=== PATIENT | male | born 1955 | race Caucasian/White ===

== ENCOUNTER → 2020-03-24 | Outpatient (CLI) | payer MEDICARE ==
--- NOTE | 2020-03-24 14:46 | US ---
EXAMINATION TYPE: US venous doppler duplex LE RT DATE OF EXAM: 03/24/2020 2:34 PM COMPARISON: NONE CLINICAL HISTORY: RLE M79.661 Pain in right leg; R22.41 swelling. work injury on lower right owusu abo ve ankle, assess for clot, no h/o dvt SIDE PERFORMED: Right TECHNIQUE: The lower extremity deep venous system is examined utilizing real time linear array sonog basil with graded compression, doppler sonography and color-flow sonography. VESSELS IMAGED: Common Femoral Vein Deep Femoral Vein Greater Saphenous Vein * Femoral Vein Popliteal Vein Small Saphenous Vein * Proximal Calf Veins (* superficial vessels) Right Leg: Negative for DVT superficial soft tissue near injury produced no hematoma or other abno rmality, mild subcutaneous edema at this level is present Grayscale, color doppler, spectral doppler imaging performed of the deep veins of the right lower ext remity. There is normal flow, compressibility, vascular waveforms. IMPRESSION: No ultrasound evidence for acute DVT in the right lower extremity.
== END | disposition home or self-care (01) ==
LOC: RADUSWWP 14:10
PROVIDERS: ATTEND Family Medicine
DX: M79.661 Pain in right lower leg (principal); R22.41 Localized swelling, mass and lump, right lower limb

== ENCOUNTER → 2024-03-04 | Outpatient (CLI) | payer MEDICARE ==
[2024-03-04 13:31] LABS: INR 0.9 (<1.2); Partial Thromboplastin Time 23.3 sec (22.0-30.0); Prothrombin Time 10.2 sec (10.0-12.5)
[2024-03-04 19:45] LABS: ALT 27 U/L (10-49); AST 23 U/L (14-35); Albumin 4.5 g/dL (3.8-4.9); Albumin/Globulin Ratio 2.05 Ratio (1.60-3.17); Alkaline Phosphatase 88 U/L (41-126); BUN/Creat Ratio 17.58 Ratio (12.00-20.00); Blood Urea Nitrogen 21.1 mg/dL (9.0-27.0); Calcium 9.5 mg/dL (8.7-10.3); Carbon Dioxide 27.3 mmol/L (21.6-31.8); Chloride 101 mmol/L (96-109); Globulin 2.2 g/dL (1.6-3.3); Glucose 95 mg/dL (70-110); Potassium 3.9 mmol/L (3.5-5.5); Sodium 141 mmol/L (135-145); Total Bilirubin 0.4 mg/dL (0.3-1.2); Total Protein 6.7 g/dL (6.2-8.2)
[2024-03-04 20:03] LABS: HCT 42.7 % (39.6-50.0); HGB 13.6 g/dL (13.0-17.0); MCHC 31.9 g/dL (32.0-37.0); MCV 94.3 FL (80.0-97.0); Mean Platelet Volume 9.4 FL (9.5-12.2); NRBC Per 100 WBC 0 X 10*3/uL (0.00-0.01); Platelet Count 443 X 10*3/uL (140-440); RBC 4.53 X 10*6/uL (4.40-5.60); RDW 12.7 % (11.5-14.5); WBC 6.93 X 10*3/uL (4.50-10.00)
== END | disposition home or self-care (01) ==
LOC: LABPAT 11:42
PROVIDERS: ATTEND Orthopaedic Surgery
DX: Z01.818 Encounter for other preprocedural examination (principal); M19.012 Primary osteoarthritis, left shoulder; Z22.322 Carrier or suspected carrier of Methicillin resistant Staphylococcus aureus
CPT/HCPCS: 80053; 85027; 85610; 85730; 87070; 93005

== ENCOUNTER 2024-03-18 07:23 | Day surgery (SDC) | payer MEDICARE ==
[~2024-03-18 07:23] MED LIST: ACETAMINOPHEN TAB 500 MG TAB PO PRN; LIDOCAINE 1% (10MG/ML) FOR IV START INTRADERMA PRN; TRANEXAMIC 1,000 MG/100ML-NACL 1,000 MG in SALINE 1 100ML.BAG IVPB PRN
[2024-03-18] MEDS: IV FLUID CONTINUATION 1,000 ML IV ONE (08:11)
[2024-03-18] MEDS: LACTATED RINGERS 1,000 ML IV SCH (08:15)
[2024-03-18] MEDS: MELOXICAM 7.5 MG TAB PO PRN (08:16)
[2024-03-18] MEDS: ONDANSETRON 4 MG/2 ML VIAL IVP ONE (08:16)
[2024-03-18] MEDS: DEXAMETHASONE SOD PHOSPHATE 4 MG/ML 1 ML VIAL IV ONE (08:16)
[2024-03-18] MEDS: GABAPENTIN 300 MG CAP PO PRN (08:16)
[2024-03-18] MEDS: MIDAZOLAM 2 MG/2 ML VIAL IV ONE (08:22)
--- NOTE | 2024-03-18 08:37 | P.ANPRN ---
Procedure Note - Anesthesia - Nerve Block Performed Left Interscalene Single Time Out Performed: Yes (0821) Date of Procedure: 03/18/24 Procedure Start Time: : Procedure Stop Time: Location of Patient: PreOp Indication: Acute Post-Operative Pain, Requested by Surgeon Sedation Type: Sedate with meaningful contact maintained Preparation: Sterile Prep, Sterile Dressing Position: Sitting Catheter: None Needle Types: Pajunk Needle Gauge: Other (see comment) (22G) Ultrasound used to visualize needle placement: Yes Ultrasound used to observe medication spread: Yes Injectate: 0.5% Ropivacaine (see comment for volume) (21 mL of block solution containing 20 mL of 0.5% ropivacaine mixed with 4 mg of dexamethasone) Blood Aspirated: No Pain Paresthesia on Injection Noted: No Resistance on Injection: Normal Image Stored and Saved: Yes Events: Uneventful and Well Tolerated
[2024-03-18] MEDS ORDERED: HYDROmorphone 0.5 MG/0.5 ML SYRINGE IVP PRN (08:55)
[2024-03-18] MEDS ORDERED: SENNOSIDES-DOCUSATE SODIUM 1 EACH TAB PO PRN (08:55)
[2024-03-18] MEDS ORDERED: ONDANSETRON 4 MG/2 ML VIAL IVP PRN (08:55)
[2024-03-18] MEDS ORDERED: PROPOFOL 10 MG/ML 20 ML VIAL IV ONE (08:57)
[2024-03-18] MEDS ORDERED: fentaNYL (PF) 50 MCG/ML 2 ML AMP ONE (08:57)
[2024-03-18] MEDS ORDERED: ROCURONIUM 10 MG/ML (5 ML VIAL) IV ONE (08:57)
[2024-03-18] MEDS ORDERED: SUCCINYLCHOLINE CHLORIDE 200 MG/10 ML VIAL IV ONE (08:57)
[2024-03-18] MEDS ORDERED: DEXAMETHASONE SOD PHOSPHATE 4 MG/ML 1 ML VIAL ONE (08:57)
[2024-03-18] MEDS ORDERED: TRANEXAMIC 1,000 MG/100ML-NACL PREMIX BAG ONE (08:57)
[2024-03-18] MEDS ORDERED: ePHEDrine 50 MG/ML 1 ML VIAL ONE (08:57)
[2024-03-18] MEDS ORDERED: NEOSTIGMINE 1 MG/ML 10 ML VIAL ONE (08:57)
[2024-03-18] MEDS ORDERED: PHENYLEPHRINE-0.9% NACL SYG 1,000 MCG/10 ML SYRINGE ONE (08:57)
[2024-03-18] MEDS ORDERED: GLYCOPYRROLATE 0.2 MG/ML 2 ML VIAL ONE (08:57)
[2024-03-18] MEDS ORDERED: MIDAZOLAM 2 MG/2 ML VIAL ONE (08:57)
[2024-03-18] MEDS ORDERED: ROPIVACAINE 5 MG/ML 30 ML VIAL ONE (08:57)
[2024-03-18] MEDS ORDERED: LIDOCAINE 1% INJ 10MG/ML (20 ML MDV) ONE (08:57)
[2024-03-18] MEDS: LACTATED RINGERS 1,000 ML IV ONE ×2 (10:24)
--- NOTE | 2024-03-18 10:40 | P.OP ---
Date of Procedure: 03/18/24 Preoperative Diagnosis: Severe glenohumeral osteoarthritis of the left shoulder with chronic rotator cuff tear Postoperative Diagnosis: Severe glenohumeral osteoarthritis of the left shoulder with chronic rotator cuff tear Procedure(s) Performed: Reverse left total shoulder arthroplasty Implants: Biomet comprehensive shoulder system, mini humeral stem, 13 mm porous-coated. Biomet comprehensive reverse shoulder system, humeral bearing, 36 mm, standard Biomet comprehensive reverse shoulder system, mini humeral tray, 40 mm, +3, retentive Biomet comprehensive reverse shoulder, Glenosphere mini baseplate, 25 mm Biomet comprehensive reverse shoulder, central screw, 6.5 mm x 25 mm Biomet comprehensive reverse shoulder, fixed locking screw, 4.75 x 20 mm, 20 mm, 15 mm, 20 mm. Biomet comprehensive reverse shoulder glenosphere, 36 mm, standard All components were press-fit. Articulation is metal on polyethylene.Articulation is metal on polyethylene. Anesthesia: GETA Surgeon: Geovanni Wilkes Newborn Hearing Screener #1: Lorri Beltran Estimated Blood Loss (ml): 100 Pathology: none sent Condition: stable Disposition: PACU Indications for Procedure: This is a patient that presented to my office with severe pain in the shoulder. X-rays demonstrated severe osteoarthritis of the glenohumeral joint of the shoulder. After failure of conservative treatment, we discussed the surgical and nonsurgical treatment options at length. The patient wishes to proceed with a reverse total shoulder arthroplasty. Patient is aware of the complications of the procedure which include but are not limited to infection, hardware failure, persistent pain, dislocation, and nerve injury. Informed consent was obtained. Operative Findings: The operative findings are consistent with severe glenohumeral osteoarthritis of the left shoulder with chronic rotator cuff tear Description of Procedure: The patient was seen in the preoperative area, consent was reviewed, and operative site was marked with a skin marker. Patient was then brought to the operating room and given preoperative antibiotics intravenously. Patient was also given 1 g of Tranexamic acid intravenously. A general anesthetic was administered by the anesthesia department. A Ceja catheter was placed by the nursing staff. The patient was then placed in a beachchair position with the bony prominences well-padded and the head secured. The shoulder was then prepped and draped in the usual sterile fashion. A universal timeout was then performed, which confirmed the patient's name, surgical site, ALLERGIES, and consent. A standard deltopectoral approach was performed. The skin and subcutaneous tissue was sharply dissected down to the deltoid fascia. The cephalic vein was then identified and retracted medially. The deltopectoral interval was then utilized to expose the subscapularis tendon. A retractor was then placed under the coracobrachialis tendon retracted medially, and the deltoid. The axillary nerve is palpated and protected throughout the procedure. The subscapularis tendon was then released and retracted medially. The humeral head was then exposed easily. The rotator cuff tendon was found to be completely torn and retracted. After the humeral head was exposed, osteophytes were removed with a Ronguer. Next the humeral stem was prepared. A starter reamer was then placed through the humeral head along the axis of the humeral shaft just lateral to the articular surface and just medial to the rotator cuff attachment. Sequential reaming was performed to the appropriate size reamer was inserted to the #between the 3 and 4 on the reamer. Next the intramedullary resection guide was placed on the reamer shaft. It was placed to the appropriate resection depth and angle of 30 of retroversion. Resection guide block was then secured with Steinmann pins. The proximal humerus was then resected. The block was then removed and the humerus was then broached sequentially to the same size as the reamer. After the broaches fully seated, the broach handle was removed and a broach cover was placed protect the humerus while the glenoid was prepared. Next attention was directed to the glenoid. The appropriate retractors were placed around the glenoid and any remaining soft tissues was removed from around the glenoid. After the glenoid was adequately exposed, the threaded glenoid guide was placed onto the glenoid and a 3.2 mm Steinmann pin was inserted in the glenoid at the desired angle and position, ensuring the pin engaged medial cortical wall. Next, the cannulated baseplate reamer was placed over the top of the Steinmann pin. The glenoid was then reamed to the appropriate depth. The glenoid reamer was then removed, leaving the Steinmann pin. The glenoid Joey plate implant was placed on the end of the cannulated baseplate impactor. The baseplate was then impacted fully into the glenoid. Next the 6.5 mm central screw was then placed which afforded excellent fixation. The 4 peripheral locking screws were then drilled measured and placed. Next the appropriate glenosphere was opened and impacted into the glenoid baseplate. Attention was then redirected to the humerus. Next a trial humeral tray was placed in the shoulder was reduced. Shoulder was taken through a full range of motion and found to be stable. The shoulder was then gently dislocated, and the trial humerus and humeral tray were removed. The final humeral stem was impacted in the final humeral tray was impacted as well. Shoulder was then relocated. Again the shoulder was taken through a range of motion and found to have no instability. Shoulder was then irrigated with pulsatile lavage. The shoulder was then irrigated with Irrisept solution. A second dose of 1 g of Tranexamic acid was given. The subscapularis was then repaired with #1 Vicryl. The deltopectoral interval was then closed with #1 Vicryl as well. The subcutaneous tissues were closed with 3-0 Vicryl, 3-0 moncryl, then Exofin glue was placed on the skin. A sterile dressing was then applied, the patient was transported to the recovery room in an arm sling in stable condition. The medical practice assistant YINA Duran was required due the complexity of surgery and the need for a skilled surgical coder.
[2024-03-18] MEDS: HYDROmorphone 0.5 MG/0.5 ML SYRINGE IVP PRN ×3 (11:14→22:15)
--- NOTE | 2024-03-18 13:22 | XR ---
EXAMINATION TYPE: XR shoulder limited LT DATE OF EXAM: 03/18/2024 1:18 PM INDICATION: Patient age:Male; 68 years old; Reason for study: post op; pain COMPARISON: None TECHNIQUE: The left shoulder was examined in single frontal projection. FINDINGS: Postsurgical changes from left shoulder arthroplasty with humeral head component and glenoid componen t. Hardware appears intact with appropriate alignment. There is surrounding soft tissue gas and edema . Mild AC joint arthropathy. No acute fracture or dislocation. The visualized portions of the lungs a re clear. IMPRESSION: Postsurgical changes from left shoulder arthroplasty. Hardware appears intact with appropriate alignm ent. [facility], , 03/18/2024 1:20 PM
[2024-03-18] MEDS: droPERidol 5 MG/2 ML VIAL IVP ONE (15:47)
[2024-03-18 15:55] VITALS: RESP 18
[2024-03-18] MEDS: SODIUM CHLORIDE 0.9% 1,000 ML IV SCH (16:10)
--- NOTE | 2024-03-18 17:17 | P.CONS ---
History of Present Illness - Reason for Consult Consult date: 03/18/24 - History of Present Illness Patient is a 68-year-old male with a history of hypertension, dyslipidemia, anxiety/depression presenting for elective reverse left total shoulder arthroplasty. [facility] physicians consulted for medical management. Currently patient's temperature 97.5, pulse 86, respiratory rate 18, blood pressure 135/89, saturating at 96% on room air. Patient denies any chest pain, shortness of breath, abdominal pain, nausea, vomiting, urinary or bowel complaints. Pertinent positives and negatives as discussed in HPI, a complete review of systems was performed and all other systems are negative. Patient seen and examined at bedside. Vital signs reviewed General: nontoxic, no distress, appears at stated age Derm: warm, dry, dressing clean, dry, intact Head: atraumatic, normocephalic, symmetric Eyes: EOMI, no lid lag, anicteric sclera, pupils equal round reactive to light ENT: Nose and ears atraumatic Neck: No thyromegaly, supple Mouth: no lip lesion, mucus membranes moist Cardiovascular: S1S2 reg, no murmur, no edema Lungs: clear to auscultation bilateral, no rhonchi, no rales, no wheeze, no accessory muscle use Abdominal: soft, nontender to palpation, no guarding, no appreciable organomegaly Ext: no gross muscle atrophy, left shoulder in a sling Neuro: CN II-XII grossly intact Psych: Alert, oriented, appropriate affect Assessment/Plan: Active: Status post left shoulder arthroplasty -Pain control with oral [place] as needed, IV Dilaudid as needed, monitor for sedation -On bowel regimen per orthopedic surgery -SCDs for DVT prophylaxis -CBC and BMP ordered for tomorrow Hypertension -Continue losartan hydrochlorothiazide 100-25 -Continue nifedipine 30 mg daily Dyslipidemia -Continue atorvastatin 20 mg daily, ezetimibe 10 mg daily OCD -Continue bupropion 300 mg daily Thank you for allowing us to participate in the care of this pleasant patient. Do not hesitate to contact us with questions. Someone can be reached from the [facility] hospitalist group all hours of the day at [phone] or via Roost. Past Medical History Past Medical History: Hyperlipidemia, Hypertension Additional Past Medical History / Comment(s): gout , has scabbed area on knee History of Any Multi-Drug Resistant Organisms: None Reported Past Surgical History: Appendectomy Additional Past Surgical History / Comment(s): cyst from knee, colonoscopies Past Anesthesia/Blood Transfusion Reactions: No Reported Reaction Additional Psychological History / Comment(s): ocd Smoking Status: Former smoker Past Alcohol Use History: Daily Additional Past Alcohol Use History / Comment(s): quit 27 yrs ago, 1 drink per day Past Drug Use History: None Reported - Past Family History Father Family Medical History: No Reported History Medications and Allergies Home Medications Medication Instructions Recorded Confirmed Type Aspirin [Adult Low Dose Aspirin EC] 81 mg PO DAILY 03/13/24 03/13/24 History Atorvastatin Calcium 20 mg PO DAILY 03/13/24 03/13/24 History Colchicine 0.6 mg PO DAILY PRN 03/13/24 03/18/24 History Ezetimibe [Zetia] 10 mg PO DAILY 03/13/24 03/13/24 History Losartan/Hydrochlorothiazide 1 tab PO DAILY 03/13/24 03/13/24 History [Losartan-Hctz 100-25 mg Tab] NIFEdipine XL [Procardia Xl] 30 mg PO DAILY 03/13/24 03/13/24 History Sildenafil (Unk) 1 tab PO DIRECTED PRN 03/13/24 03/13/24 History buPROPion HCL [buPROPion HCL XL] 300 mg PO DAILY 03/13/24 03/13/24 History HYDROcodone/APAP 7.5-325MG [[place] 1 - 2 tab PO Q6H PRN #32 tab 03/18/24 Rx 7.5-325] Sennosides [Senokot] 2 tab PO DAILY PRN #60 tablet 03/18/24 Rx Allergies Allergy/AdvReac Type Severity Reaction Status Date / Time No Known Allergies Allergy Verified 03/18/24 07:45 Physical Exam Vitals: Vital Signs Temp Pulse Resp BP Pulse Ox 03/18/24 15:48 97.5 F L 86 18 135/89 96 03/18/24 15:00 79 16 125/79 98 03/18/24 14:30 79 16 128/66 97 03/18/24 13:30 83 16 121/76 97 03/18/24 13:00 75 16 121/62 96 03/18/24 12:30 79 16 124/76 96 03/18/24 12:00 80 16 136/84 94 L 03/18/24 11:15 79 16 121/82 93 L 03/18/24 11:00 81 14 140/95 97 03/18/24 10:45 97 F L 83 14 161/98 97 03/18/24 08:30 72 16 137/88 97 03/18/24 08:09 98.4 F 69 16 139/93 99 Intake and Output 03/18/24 03/18/24 03/18/24 06:59 14:59 22:59 Intake Total 1650 Output Total 100 200 Balance 1550 -200 Intake: IV 1650 Output: Urine 200 Estimated Blood Loss 100 Other: Weight 105.7 kg 105.7 kg
[2024-03-18] MEDS: HYDROcodone/APAP 7.5-325MG 1 EACH TAB PO PRN (18:19)
[2024-03-19] MEDS: HYDROcodone/APAP 7.5-325MG 1 EACH TAB PO PRN (00:31)
[2024-03-19 01:09] VITALS: PULSE 64
[2024-03-19 05:01] LABS: African American GFR (CKD) >90 (>60 ml/min/1.73 sqM); Anion Gap 12 mmol/L; Blood Urea Nitrogen 24 mg/dL (9-20); Calcium 9.2 mg/dL (8.4-10.2); Carbon Dioxide 25 mmol/L (22-30); Chloride 97 mmol/L (98-107); Glucose 110 mg/dL (74-99); Non-African American GFR(CKD) 81 (>60 ml/min/1.73 sqM); Sodium 134 mmol/L (137-145)
[2024-03-19] MEDS: ATORVASTATIN 20 MG TAB PO SCH (09:05)
[2024-03-19] MEDS: LOSARTAN-HCTZ 50-12.5 MG 1 EACH TAB PO SCH (09:05)
[2024-03-19] MEDS: NIFEdipine XL 30 MG TAB.ER.24 PO SCH (09:05)
[2024-03-19] MEDS: EZETIMIBE 10 MG TAB PO SCH (09:05)
[2024-03-19] MEDS: buPROPion XL 300 MG TAB.ER.24H PO SCH (09:05)
[2024-03-19 09:13] VITALS: BP 124/78; TEMP 98.1
[2024-03-19 10:20] LABS: Basophils % (A) 0 %; Eosinophils % (A) 0 %; HCT 37.4 % (39.0-53.0); HGB 12.1 gm/dL (13.0-17.5); Lymphocytes # (A) 1.1 k/uL (1.0-4.8); Lymphocytes % (A) 7 %; MCH 30.6 pg (25.0-35.0); MCHC 32.4 g/dL (31.0-37.0); MCV 94.3 fL (80.0-100.0); Mean Platelet Volume 7.2; Monocytes # (A) 1.4 k/uL (0-1.0); Monocytes % (A) 9 %; Neutrophils # (A) 12.2 k/uL (1.3-7.7); Neutrophils % (A) 81 %; Platelet Count 334 k/uL (150-450); RBC 3.97 m/uL (4.30-5.90); RDW 13.1 % (11.5-15.5)
--- NOTE | 2024-03-19 10:43 | P.DS ---
Providers Expected date of discharge: 03/19/24 Attending physician: Geovanni Wilkes Consults: 03/18/24 08:55 Consult Physician Routine Consulting Provider: Nathan Carrillo Consult Reason/Comments: medical management Do you want consulting provider notified?: Yes Primary care physician: Lorri Harris, NPC - Discharge Diagnosis(es) (1) Localized primary osteoarthritis of left shoulder region Current Visit: Yes Status: Acute (2) Status post total shoulder arthroplasty Current Visit: Yes Status: Acute Hospital Course: This is a patient that presented to my office with severe pain in the shoulder. X-rays demonstrated severe osteoarthritis of the glenohumeral joint of the shoulder. After failure of conservative treatment, we discussed the surgical and nonsurgical treatment options at length. The patient wishes to proceed with a reverse total shoulder arthroplasty. Patient is aware of the complications of the procedure which include but are not limited to infection, hardware failure, persistent pain, dislocation, and nerve injury. Informed consent was obtained. The patient is taken to surgery on 03/18/2024 for total shoulder arthroplasty. The procedure was performed without complication or sequelae. The patient is doing well on postop day #1. There are no new complaints or concerns today. The patient is afebrile. The patient is discharged to home and 03/19/2024. Please see med rec for accurate list of home medications. Patient Condition at Discharge: Good Plan - Discharge Summary Discharge Rx Participant: Yes New Discharge Prescriptions: New HYDROcodone/APAP 7.5-325MG [[place] 7.5-325] 1 - 2 tab PO Q6HR PRN #32 tab PRN Reason: Pain Sennosides-Docusate Sodium [Senokot-S] 1 tab PO BID #60 tablet Continue NIFEdipine XL [Procardia XL] 30 mg PO DAILY Losartan/Hydrochlorothiazide [Losartan-Hctz 100-25 mg Tab] 1 tab PO DAILY Colchicine 0.6 mg PO DAILY PRN PRN Reason: gout Ezetimibe [Zetia] 10 mg PO DAILY buPROPion HCL [buPROPion HCL XL] 300 mg PO DAILY Sildenafil (Unk) 1 tab PO DIRECTED PRN PRN Reason: erectile dysfunction Atorvastatin Calcium 20 mg PO DAILY Aspirin [Adult Low Dose Aspirin EC] 81 mg PO DAILY Discharge Medication List Aspirin [Adult Low Dose Aspirin EC] 81 mg PO DAILY 03/13/24 [History] Atorvastatin Calcium 20 mg PO DAILY 03/13/24 [History] Colchicine 0.6 mg PO DAILY PRN 03/13/24 [History] Ezetimibe [Zetia] 10 mg PO DAILY 03/13/24 [History] Losartan/Hydrochlorothiazide [Losartan-Hctz 100-25 mg Tab] 1 tab PO DAILY 03/13/24 [History] NIFEdipine XL [Procardia XL] 30 mg PO DAILY 03/13/24 [History] Sildenafil (Unk) 1 tab PO DIRECTED PRN 03/13/24 [History] buPROPion HCL [buPROPion HCL XL] 300 mg PO DAILY 03/13/24 [History] HYDROcodone/APAP 7.5-325MG [[place] 7.5-325] 1 - 2 tab PO Q6HR PRN #32 tab 03/19/24 [Rx] Sennosides-Docusate Sodium [Senokot-S] 1 tab PO BID #60 tablet 03/19/24 [Rx] Follow up Appointment(s)/Referral(s): Geovanni Wilkes DO [Doctor of Osteopathic Medicine] - 2 Weeks Activity/Diet/Wound Care/Special Instructions: Maintain sling for comfort. Dressing may be removed by home care nurse or by patient in 7 days. Then change dressing twice daily until follow up. May shower with initial dressing intact and after removal. If dressing become saturated, please remove. Please follow-up with [facility] and call with any questions or concerns, . Discharge Disposition: HOME WITH HOME HEALTH SERVICES
--- NOTE | 2024-03-19 11:09 | P.PN ---
Subjective Progress Note Date: 03/19/24 Subjective: Seen and examined at bedside. No acute events overnight. Pertinent positives and negatives as discussed above, a complete review of systems was performed and all other systems are negative. Vitals Signs Reviewed. General: Nontoxic, no distress, appears at stated age Derm: Warm, dry, dressing clean, dry, intact Head: Atraumatic, normocephalic, symmetric Eyes: EOMI, no lid lag, anicteric sclera Mouth: No lip lesion, mucus membranes moist Cardiovascular: S1S2 reg, no murmur Lungs: CTA bilateral, no rhonchi, no rales, no accessory muscle use Abdominal: Soft, nontender to palpation, no guarding, no appreciable organomegaly Ext: No gross muscle atrophy, no edema, no contractures, left shoulder in a sling Neuro: CN II-XI grossly intact, no focal neuro deficits Psych: Alert, oriented, appropriate affect Data Reviewed Today: Pertinent Labs: WBC 15, hemoglobin 12.1, sodium 134, creatinine 0.95 Imaging: No new imaging Assessment and Plan: Active: Status post left shoulder arthroplasty Leukocytosis, anticipated outcome of surgery -Pain control with oral [place] as needed, IV Dilaudid as needed, monitor for sedation -On bowel regimen per orthopedic surgery -SCDs for DVT prophylaxis Hypertension Mild hyponatremia -Continue losartan hydrochlorothiazide 100-25 -Continue nifedipine 30 mg daily Dyslipidemia -Continue atorvastatin 20 mg daily, ezetimibe 10 mg daily OCD -Continue bupropion 300 mg daily Patient is medically optimized for discharge. Thank you for allowing us to participate in the care of this pleasant patient. Do not hesitate to contact us with questions. Someone can be reached from the [facility] hospitalist group all hours of the day at [phone] or via perfect serve. Objective - Vital Signs Vital signs: Vital Signs Temp 98.1 F 03/19/24 07:20 Pulse 64 03/19/24 08:00 Resp 18 03/19/24 08:00 BP 124/78 03/19/24 07:20 Pulse Ox 95 03/19/24 07:20 FiO2 Intake & Output 03/18/24 03/19/24 03/19/24 18:59 06:59 18:59 Intake Total 1650 Output Total 300 Balance 1350 Weight 105.7 kg Intake: IV 1650 Output: Urine 200 Estimated Blood Loss 100 Other: Voiding Method Toilet Toilet # Voids 2 2 - Labs CBC & Chem 7: 03/19/24 09:33 03/19/24 03:39 Labs: Abnormal Lab Results - Last 24 Hours (Table) 03/19/24 03/19/24 Range/Units 03:39 09:33 WBC 15.0 H (3.8-10.6) k/uL RBC 3.97 L (4.30-5.90) m/uL Hgb 12.1 L (13.0-17.5) gm/dL Hct 37.4 L (39.0-53.0) % Neutrophils # 12.2 H (1.3-7.7) k/uL Monocytes # 1.4 H (0-1.0) k/uL Sodium 134 L (137-145) mmol/L Chloride 97 L (98-107) mmol/L BUN 24 H (9-20) mg/dL Glucose 110 H (74-99) mg/dL
== END 2024-03-19 12:08 | disposition home health service (06) ==
LOC: OR 07:23 → 4SSUR 10:45 → OR 03-19 12:08
PROVIDERS: ATTEND Orthopaedic Surgery
DX: M19.012 Primary osteoarthritis, left shoulder (principal); E78.5 Hyperlipidemia, unspecified; E87.1 Hypo-osmolality and hyponatremia; F32.A Depression, unspecified; F41.9 Anxiety disorder, unspecified; F42.9 Obsessive-compulsive disorder, unspecified; G89.18 Other acute postprocedural pain; I10 Essential (primary) hypertension; M75.102 Unspecified rotator cuff tear or rupture of left shoulder, not specified as traumatic; Z79.82 Long term (current) use of aspirin; Z79.899 Other long term (current) drug therapy; Z87.891 Personal history of nicotine dependence; Z90.49 Acquired absence of other specified parts of digestive tract
CPT/HCPCS: 80048; 85025; 73020; 23472; 64415; J2250; J1100; J0690 ×2; J2405; J1171 ×2